=== PATIENT | male | born 1990 | race Caucasian/White ===

== ENCOUNTER 2016-12-31 13:54 | Emergency (ER) | payer MEDICAID ==
[~2016-12-31] VITALS: Ht 170.2 cm; Wt 79.5 kg
[2016-12-31] MEDS ORDERED: ACETAMINOPHEN 325 MG TABLET PO ONE (15:00)
[2016-12-31] MEDS ORDERED: ValACYclovir HCL 500 MG TABLET PO ONE (15:00)
[2016-12-31 15:16] VITALS: BP 128/86
== END 2016-12-31 15:21 | disposition home or self-care (01) ==
LOC: EMS 13:57
DX: A60.00 Herpesviral infection of urogenital system, unspecified (principal); R21 Rash and other nonspecific skin eruption; F12.90 Cannabis use, unspecified, uncomplicated
CPT/HCPCS: 99283